=== PATIENT | male | born 1990 | race Caucasian/White ===

== ENCOUNTER 2018-09-13 17:42 | Emergency (ER) | payer OTHER ==
[~2018-09-13] VITALS: Wt 80.0 kg
[2018-09-13 17:57] VITALS: BP 150/81
[2018-09-13] MEDS ORDERED: AZITHROMYCIN 500 MG TAB PO ONE (19:30)
[2018-09-13] MEDS ORDERED: CEFTRIAXONE 250 MG INJ IM ONE (19:30)
[2018-09-13 20:04] VITALS: PULSE 68; RESP 20
--- NOTE | 2018-09-27 09:55 | ERD ---
ER Documentation Chief Complaint Chief Complaint DYSURIA FOR THE PAST FEW DAYS, NO DISCHARGE. NO FEVERS. NO N/V HPI 8-year-old male presents with dysuria for last 3 days. Denies discharge, fevers, vomiting, abdominal pain, additional complaints. Denies any testicular pain or swelling. Patient is concerned about possible STDs due to recent new sexual contacts. ROS All systems reviewed and are negative except as per history of present illness. Allergies Allergies: Coded Allergies: No Known Allergy (Unverified , 09/13/18) PMhx/Soc Medical and Surgical Hx: pt denies Medical Hx, pt denies Surgical Hx History of Surgery: No Anesthesia Reaction: No Hx Neurological Disorder: No Hx Respiratory Disorders: No Hx Cardiac Disorders: No Hx Psychiatric Problems: No Hx Miscellaneous Medical Probl: No Hx Alcohol Use: Yes (social) Hx Substance Use: No Hx Tobacco Use: No Smoking Status: Never smoker FmHx Family History: No diabetes, No coronary disease, No other Physical Exam Physical Exam Const: No acute distress Head: Atraumatic Eyes: Normal Conjunctiva ENT: Normal External Ears, Nose and Mouth. Neck: Full range of motion. No meningismus. Resp: Clear to auscultation bilaterally Cardio: Regular rate and rhythm, no murmurs Abd: Soft, non tender, non distended. Normal bowel sounds. General exam s hows testicles normal size, nontender descended bilaterally. No penile discharge or external lesions appreciated. Skin: No petechiae or rashes Back: No midline or flank tenderness Ext: No cyanosis, or edema Neur: Awake and alert Psych: Normal Mood and Affect Results 24 hrs Laboratory Tests Test 09/13/18 19:26 Chlamydia trachomatis RNA (TMA) NOT DETECTED Chlamydia/GC Comment SEE NOTE Neisseria gonorrhoeae RNA (TMA) NOT DETECTED Current Medications Medications Dose Sig/Rodri Start Time Status Last (Trade) Ordered Route PRN Stop Time Admin Dose Reason Admin Ceftriaxone 250 mg ONCE ONCE 09/13/18 DC 09/13/18 Sodium IM 19:30 19:26 (Rocephin) 09/13/18 19:31 1,000 mg ONCE ONCE 09/13/18 DC 09/13/18 Azithromycin PO 19:30 19:26 (Zithromax) 09/13/18 19:31 Procedures/MDM Patient presents with dysuria for last 3 days. We will treat empirically for urethritis with Zithromax, Rocephin. There is no signs of testicular torsion, abdominal pain, Dru's gangrene, additional concerning signs or symptoms. The patient was stable with no new complaints during the ER course. Clinically, there is no current evidence to suggest meningitis, sepsis, acute abdomen, pneumonia, stroke, acute coronary syndrome, pulmonary embolism, aortic dissection or any other emergent condition appearing to require further evaluation or hospitalization. Patient counseled regarding my diagnostic impression and care plan. Prior to discharge all questions answered. Pt agrees with treatment plan and understands strict return precautions. Pt is instructed to follow up with primary care provider within 24-48 hours. Precautionary instructions provided including instructions to return to the ER if not improving or for any worsening or changing symptoms or concerns. Disclaimer: Inadvertent spelling and grammatical errors are likely due to EHR/dictation software use and do not reflect on the overall quality of patient care. Also, please note that the electronic time recorded on this note does not necessarily reflect the actual time of the patient encounter. Departure Diagnosis: Primary Impression: Dysuria Condition: Stable Patient Instructions: Urethritis in Men, Dysuria Additional Instructions: STD test will return within 1 week. Recheck for new worsening symptoms-fevers, abdominal pain, testicular swelling, or with primary care doctor. Okay to take Tylenol for pain. SHERRELL OLMSTEAD MD September 27, 2018 09:55
== END 2018-09-13 20:00 | disposition home or self-care (01) ==
LOC: FTE 17:42
DX: R30.0 Dysuria (principal)
CPT/HCPCS: 87591; 96372; J0696; Z7502; Z7610